=== PATIENT | female | born 2000 | race African-American/Black ===

== ENCOUNTER 2020-08-05 23:35 | Emergency (ER) | payer SELFPAY ==
[~2020-08-05] VITALS: Ht 167.6 cm; Wt 114.0 kg
[2020-08-06 01:09] VITALS: BP 151/90
[2020-08-06 05:41] LABS: CLARITY URINE CLEAR (CLEAR); COLOR URINE YELLOW (YELLOW); KETONES URINE TRACE (NEGATIVE); LEUKOCYTE ESTERASE URINE TRACE (NEGATIVE); NITRITE URINE NEGATIVE (NEGATIVE); OCCULT BLOOD URINE NEGATIVE (NEGATIVE); PH URINE 5.5 (4.5-8.0); PROTEIN URINE NEGATIVE (NEGATIVE); SPECIFIC GRAVITY URINE 1.035 (1.005-1.030); UROBILINOGEN URINE 0.2 E.U./dL (0.2-1.0)
[2020-08-06 06:44] LABS: BASOPHILS % 0.6 % (0.0-2.0); EOSINOPHILS % 12.2 % (0.0-5.0); HEMATOCRIT. 47.2 % (36.0-48.0); HEMOGLOBIN. 15.7 g/dL (12.0-16.0); LYMPHOCYTES % 33.4 % (20.0-50.0); MEAN CORPUSCULAR HEMOGLOBIN 29.1 pg (28.0-32.0); MEAN CORPUSCULAR VOLUME 87.6 fL (81.0-99.0); MEAN PLATELET VOLUME 9.1 fl (7.4-10.4); MONOCYTES % 6.9 % (2.0-8.0); NEUTROPHILS % 46.9 % (40.0-76.0); PLATELET 179 x1000/uL (130-400); RED BLOOD CELL COUNT 5.38 mill/uL (4.2-5.4); RED CELL DISTRIBUTION WIDTH 14.4 % (11.6-14.6)
[2020-08-06 06:59] LABS: CHLORIDE 107 mEq/L (98-107)
[2020-08-06 15:02] LABS: *AMPHETAMINES SCREEN URINE NEGATIVE (NEGATIVE); *BARBITURATES SCREEN URINE NEGATIVE (NEGATIVE); *BENZODIAZEPINES SCREEN URINE NEGATIVE (NEGATIVE); *COCAINE SCREEN URINE NEGATIVE (NEGATIVE)
[2020-08-06 15:03] LABS: METHADONE URINE SCREEN NEGATIVE (NEGATIVE); OPIATES URINE SCREEN NEGATIVE (NEGATIVE); PHENCYCLIDINE URINE SCREEN NEGATIVE (NEGATIVE)
[2020-08-06 15:08] LABS: CANNABINOID URINE SCREEN PRESUMTIVE POSITIVE (NEGATIVE)
== END 2020-08-06 07:19 | disposition home or self-care (01) ==
LOC: ER 23:35
DX: K59.00 Constipation, unspecified (principal); N39.0 Urinary tract infection, site not specified; J45.909 Unspecified asthma, uncomplicated
CPT/HCPCS: 36415; 80053; 80305; 81003; 81025; 85025; 93005; 99284

== ENCOUNTER 2020-10-20 04:35 | Emergency (ER) | payer MEDICAID ==
[~2020-10-20] VITALS: Ht 167.6 cm; Wt 113.0 kg
[2020-10-20] MEDS ORDERED: ONDANSETRON HCL 4MG/2ML INJ IV STA (05:42)
[2020-10-20] MEDS ORDERED: SODIUM CHLORIDE 0.9% 1,000 ML IV ONE (05:45)
[2020-10-20 06:03] LABS: CHLORIDE 106 mEq/L (98-107)
[2020-10-20 06:05] LABS: BASOPHILS % 0.4 % (0.0-2.0); EOSINOPHILS % 1.4 % (0.0-5.0); HEMATOCRIT. 49.5 % (36.0-48.0); HEMOGLOBIN. 16.7 g/dL (12.0-16.0); LYMPHOCYTES % 15.4 % (20.0-50.0); MEAN CORPUSCULAR HEMOGLOBIN 29.7 pg (28.0-32.0); MEAN CORPUSCULAR VOLUME 88.2 fL (81.0-99.0); MEAN PLATELET VOLUME 10.3 fl (7.4-10.4); MONOCYTES % 4.1 % (2.0-8.0); NEUTROPHILS % 78.7 % (40.0-76.0); PLATELET 218 x1000/uL (130-400); RED BLOOD CELL COUNT 5.61 mill/uL (4.2-5.4)
[2020-10-20] MEDS ORDERED: HALOPERIDOL LACTATE 5MG/ML VIAL IM ONE (07:30)
[2020-10-20 08:24] LABS: HCG SCREEN NEGATIVE
[2020-10-20 09:56] LABS: CLARITY URINE CLEAR (CLEAR); COLOR URINE YELLOW (YELLOW); KETONES URINE TRACE (NEGATIVE); LEUKOCYTE ESTERASE URINE TRACE (NEGATIVE); NITRITE URINE NEGATIVE (NEGATIVE); OCCULT BLOOD URINE 1+ (NEGATIVE); PH URINE 6.5 (4.5-8.0); PROTEIN URINE 3+ (NEGATIVE); SPECIFIC GRAVITY URINE 1.027 (1.005-1.030); UROBILINOGEN URINE 0.2 E.U./dL (0.2-1.0)
[2020-10-20] MEDS ORDERED: PANT40SU PO (10:21)
[2020-10-20] MEDS ORDERED: METO-293 MT (10:21)
[2020-10-20 11:00] VITALS: BP 133/80
== END 2020-10-20 11:02 | disposition home or self-care (01) ==
LOC: ER 04:35
DX: R10.10 Upper abdominal pain, unspecified (principal); R11.10 Vomiting, unspecified; I10 Essential (primary) hypertension; J45.909 Unspecified asthma, uncomplicated; F12.10 Cannabis abuse, uncomplicated; Z79.899 Other long term (current) drug therapy
CPT/HCPCS: 36415; 76700; 80053; 81003; 81025; 83690; 84703; 85025; 93005; 96361; 96372; 96374; 99285; J1630; J2405; J7030; Z7610

== ENCOUNTER 2020-12-20 04:05 | Emergency (ER) | payer MEDICAID ==
[~2020-12-20] VITALS: Ht 182.9 cm; Wt 118.0 kg
[~2020-12-20 04:05] MED LIST: METO-293 MT; PANT40SU PO
[2020-12-20] MEDS ORDERED: FAMOTIDINE 20MG/2ML VIAL IV STA (04:30)
[2020-12-20] MEDS ORDERED: ONDANSETRON HCL 4MG/2ML INJ IV STA (04:30)
[2020-12-20 04:50] LABS: BASOPHILS % 0.5 % (0.0-2.0); EOSINOPHILS % 3.7 % (0.0-5.0); HEMATOCRIT. 48.1 % (36.0-48.0); HEMOGLOBIN. 16.1 g/dL (12.0-16.0); LYMPHOCYTES % 21.8 % (20.0-50.0); MEAN CORPUSCULAR HEMOGLOBIN 29.2 pg (28.0-32.0); MEAN CORPUSCULAR VOLUME 87.5 fL (81.0-99.0); MEAN PLATELET VOLUME 9.8 fl (7.4-10.4); MONOCYTES % 5.6 % (2.0-8.0); NEUTROPHILS % 68.4 % (40.0-76.0); PLATELET 181 x1000/uL (130-400); RED BLOOD CELL COUNT 5.49 mill/uL (4.2-5.4)
[2020-12-20 04:55] LABS: CHLORIDE 108 mEq/L (98-107)
[2020-12-20 04:58] LABS: INR 1.1; PROTHROMBIN TIME 11.6 sec (9.6-11.0)
[2020-12-20 05:17] LABS: HCG SCREEN NEGATIVE
[2020-12-20] MEDS ORDERED: ONDANSETRON HCL 4MG/2ML INJ IV ONE (06:00)
[2020-12-20] MEDS ORDERED: MORPHINE SULFATE 4 MG/ML CPJ (NOT FOR IM USE) IV ONE (06:00)
[2020-12-20] MEDS ORDERED: SODIUM CHLORIDE 0.9% 1,000 ML IV ONE (06:15)
[2020-12-20] MEDS ORDERED: OMEP20CA14 MT (06:16)
[2020-12-20] MEDS ORDERED: ONDA4TAB5 MT (06:29)
[2020-12-20 07:37] VITALS: BP 121/67
== END 2020-12-20 07:59 | disposition home or self-care (01) ==
LOC: ER 04:05
DX: R10.33 Periumbilical pain (principal); R11.2 Nausea with vomiting, unspecified; J45.909 Unspecified asthma, uncomplicated; F12.10 Cannabis abuse, uncomplicated; Z79.899 Other long term (current) drug therapy
CPT/HCPCS: 36415; 74176; 80053; 83690; 84703; 85025; 85610; 96361; 96374; 96375; 96376; 99284; J2270; J2405; J3490; J7030